=== PATIENT | female | born 1980 | race Caucasian/White ===

== ENCOUNTER 2020-01-17 07:48 | Outpatient (CLI) | payer OTHER, SELFPAY ==
--- NOTE | ~2020-01-17 | DEXA_ITS ---
Bone Density Report Name: Lisa Mcgraw Age: 39 Sex: Female Ethnicity: White Date of : 1980 Indication: height loss; Referring Provider: Hong Connelly Study: Bone densitometry was performed. Exam Date: January 17, 2020 Accession number: [id number] Bone Density: Region BMD T-score Z-score Classification AP Spine (L1-L4) 1.120 0.7 0.8 Normal Femoral Neck (Left) 0.965 1.0 1.3 Normal Total Hip (Left) 1.201 2.1 2.3 Normal Total Hip Bilateral Avg 1.191 2.0 2.2 Normal Femoral Neck (Right) 1.005 1.4 1.7 Normal Total Hip (Right) 1.180 1.9 2.1 Normal World Health Organization criteria for BMD impression classify patients as: Normal (T-score at or above -1.0), Osteopenia (T-score between -1.0 and -2.5), or Osteoporosis (T-score at or below -2.5). 10-year Fracture Risk: FRAX not reported because: Premenopausal woman All T-scores for Spine Total, Hip Total, Femoral Neck at or above -1.0 Previous Exams: Region Exam Age BMD T-score BMD Change BMD Change Date g/cm2 vs Baseline vs Previous AP Spine(L1-L4) 01/17/2020 39 1.120 0.7 -0.057(-4.8%)* -0.057(-4.8%)* 09/17/2017 37 1.177 1.2 Total Hip(Left) 01/17/2020 39 1.201 2.1 -0.045(-3.6%)* -0.045(-3.6%)* 09/17/2017 37 1.247 2.5 Total Hip(Right) 01/17/2020 39 1.180 1.9 -0.029(-2.4%)* -0.029(-2.4%)* 09/17/2017 37 1.209 2.2 *Denotes significance at 95% confidence level, LSC for AP Spine = 0.022 g/cm2, LSC for Total Hip = 0.027 g/cm2 Clinical Information Provided by Patient: Patient maximum height was 67 No regular weight bearing exercise Drinks caffeinated beverages Onset of menses at age 13 Premenopausal Number of children 3 Missed period for more than 6 months in a row Impression: The patient's bone mass is within expected range for age, gender and ethnicity. The BMD for the AP Spine(L1-L4) decreased, changing by -4.8% since the last DXA exam. The BMD for the Total Hip(Left) decreased, changing by -3.6% since the last DXA exam. The BMD for the Total Hip(Right) decreased, changing by -2.4% since the last DXA exam. Discussion: BONE DENSITY IS WITHIN EXPECTED LIMITS FOR AGE, SEX AND RACE. Bone density is within expected limits for age, sex and race at all sites measured. The patient should follow a healthful lifestyle (good nutrition with adequate calcium and vitamin D, and appropriate weight-bearing exercise). Follow-Up: Consider repeating this study in 3 to 4 years to reassess
== END 2020-01-17 07:49 | disposition home or self-care (01) ==
PROVIDERS: PCP Internal Medicine; Visit Provider Obstetrics & Gynecology
DX: Z30.42 Encounter for surveillance of injectable contraceptive (principal)
CPT/HCPCS: 77080

== ENCOUNTER 2020-12-11 08:45 | Outpatient (CLI) | payer OTHER, SELFPAY ==
--- NOTE | ~2020-12-11 | XR_ITS ---
EXAMINATION: XR chest 2V DATE: 12/11/2020 09:06 INDICATION: Cough. TECHNIQUE: Frontal and lateral views of the chest were obtained. COMPARISON: None. FINDINGS: A calcified right lung nodule is consistent with old granulomatous disease. No pleural effu glenn or pneumothorax. The heart size is normal. Surgical clips in the right upper quadrant are likely from cholecystectomy. IMPRESSION: 1. No acute cardiopulmonary disease. Reviewed, dictated and finalized at location A. 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
[2020-12-11 09:21] LABS: Basophils Absolute Auto 0.1 K/mm3 (0.0-0.1); Basophils Percent Auto 0.8 % (0.2-1.2); Eosinophils Absolute Auto 0.1 K/mm3 (0-0.3); Hematocrit 40.5 % (37.0-47.0); Hemoglobin 12.9 g/dL (12.0-15.0); Immature Granulocyte Absolute 0.07 K/mm3 (0.00-0.031); Immature Granulocyte Percent A 0.7 % (0-0.5); Lymphocytes Absolute Auto 2.74 K/mm3 (0.9-3.2); Lymphocytes Percent Auto 28.6 % (18.3-44.2); Mean Corpuscular HGB Conc 31.9 g/dl (32-36); Mean Corpuscular Hemoglobin 29.4 pg (26-34); Mean Corpuscular Volume 92.3 fl (80-100); Mean Platelet Volume 9.6 fl (7.4-10.4); Monocytes Absolute Auto 0.6 K/mm3 (0.1-0.6); Monocytes Percent Auto 5.7 % (2.6-8.5); Neutrophils Absolute Auto 6.1 K/mm3 (1.3-6.7); Neutrophils Percent Auto 63.2 % (45.5-73.1); Platelet Count Result 354 k/mm3 (150-375); Red Blood Count 4.39 M/mm3 (4.2-5.4); Red Cell Distribution Width 13.8 % (11.5-14.5); White Blood Count 9.6 K/mm3 (4.5-10.0)
[2020-12-11 09:35] LABS: Anion Gap 7 mmol/L (8-16); Blood Urea Nitrogen 13 mg/dL (7-17); Carbon Dioxide 27 mmol/L (22-30); Chloride 106 mmol/L (98-107); Cholesterol 123 mg/dL (0-200); Estimated Glomerular Filt Rate > 60; Glucose 99 mg/dL (65-105); HDL Direct 40 mg/dL; Potassium 3.8 mmol/L (3.4-5.0); Sodium 140 mmol/L (137-145); Triglycerides 114 mg/dL (<150)
[2020-12-11 09:46] LABS: LDL Cholesterol Direct 61 mg/dL
== END 2020-12-11 08:46 | disposition home or self-care (01) ==
PROVIDERS: PCP Family Medicine; Visit Provider Physician Assistant Medical
DX: Z13.220 Encounter for screening for lipoid disorders (principal); R63.5 Abnormal weight gain; Z13.1 Encounter for screening for diabetes mellitus; R05 Cough
CPT/HCPCS: 36415; 71046; 80048; 80061; 84443; 85025

== ENCOUNTER 2021-03-07 09:40 | Outpatient (CLI) | payer OTHER, SELFPAY ==
--- NOTE | ~2021-03-07 | XR_ITS ---
EXAMINATION: XR foot LT min 3V DATE: 03/07/2021 10:02 INDICATION: Lateral left foot pain TECHNIQUE: Dorsoplantar, two oblique and lateral views of the left foot were obtained. COMPARISON: None. FINDINGS: Alignment is normal. No fracture. Minimal to mild osteoarthritis characterized by mild nonuniform lester nt space narrowing and/or small marginal osteophytes at the first metatarsophalangeal and a few tarso metatarsal and interphalangeal joints. No erosions to suggest inflammatory arthritis. No periosteal r eaction. Small enthesopathic ossicle at the distal Achilles tendon. Soft tissues are unremarkable. IMPRESSION: 1. Minimal to mild polyarticular osteoarthritis in the left mid and forefoot. No acute osseous abnorm ality. Reviewed, dictated and finalized at location A. IMPRESSION: 1. Minimal to mild polyarticular osteoarthritis in the left mid and forefoot. N o acute osseous abnormality.
== END 2021-03-07 09:41 | disposition home or self-care (01) ==
LOC: ANHIMG 09:47
PROVIDERS: PCP Family Medicine; Visit Provider Nurse Practitioner Family
DX: M79.672 Pain in left foot (principal); M19.072 Primary osteoarthritis, left ankle and foot
CPT/HCPCS: 73630

== ENCOUNTER 2021-03-29 18:18 | Outpatient (CLI) | payer OTHER, SELFPAY ==
--- NOTE | ~2021-03-29 | XR_ITS ---
EXAMINATION: XR knee LT 3V DATE: 03/29/2021 18:31 INDICATION: Left knee injury and pain. TECHNIQUE: 3 views of left knee were obtained. COMPARISON: None. FINDINGS: Bone alignment is normal. No fracture. There is mild osteoarthritis of lateral and patellof emoral compartments characterized by tiny marginal osteophytes. There is a small knee joint effusion. IMPRESSION: 1. Mild left knee osteoarthritis. 2. Small left knee joint effusion. Reviewed, dictated and finalized at location A.
== END 2021-03-29 18:19 | disposition home or self-care (01) ==
PROVIDERS: PCP Family Medicine; Visit Provider Nurse Practitioner Family
DX: M17.12 Unilateral primary osteoarthritis, left knee (principal); M25.462 Effusion, left knee
CPT/HCPCS: 73562

== ENCOUNTER 2021-05-01 00:45 | Day surgery (SDC) | payer OTHER, SELFPAY ==
[2021-04-25 10:16] VITALS: BMI 39.2
[2021-05-01] VITALS (12 sets, daily range): BP systolic 87–116; BP diastolic 48–78; PULSE 59–90; RESP 10–16; TEMP 36–36.1; O2SAT 94–100
[2021-05-01] MEDS: ACETAMINOPHEN 500 MG TABLET 1000 MG PO (07:08)
[2021-05-01] MEDS: LACTATED RINGERS 1,000 ML 30 ML IV CONT ×2 (07:15→09:48)
[2021-05-01] MEDS: KETOROLAC 15 MG/ML VIAL (*BKC) IV PUSH (07:18)
--- NOTE | 2021-05-01 07:18 | WPDANESEPPF ---
Anes - Initial Pre Proc Eval Procedure: Operation Date: 05/01/21 08:30 Proposed Procedures p Hysteroscopy, Endometrial Ablation with Mary Anne, Bilateral Laparoscopic Salpingectomy - Hong Connelly MD Date/Time: 05/01/21 07:18 Surgeon: Hong Connelly MD Pre Op Diagnosis: menorrhagia, sterilization Patient Data Age: 40 Gender: F Height: 1.78 m Weight: 123.83 kg Allergies Allergy/AdvReac Type Severity Reaction Status Date / Time No Known Allergies Allergy Unknown Verified 05/01/21 07:04 Home Medications Medication Instructions Recorded Confirmed Type albuterol sulfate 90 mcg/actuation 1 inh INHALATION Q4H PRN #6.7 g 12/06/20 05/01/21 Rx aerosol inhaler bupropion HCl 150 mg 24 hr tablet, 150 mg PO QAM #30 tablet 03/29/21 05/01/21 Rx extended release meloxicam 15 mg PO DAILY 04/25/21 05/01/21 History progesterone micronized 200 mg PO DAILY 04/25/21 05/01/21 History Patient hx anesthesia problems: none Family hx anesthesia problems: none PMFSH Past Medical History Medical History BMI 40.0-44.9, adult Cough COVID-19 History of hemorrhoids Morbid (severe) obesity due to excess calories Well adult exam Surgical History Surgical History History of appendectomy History of cholecystectomy History of right oophorectomy Family History Family History Father Family history of lung cancer Mother COPD (chronic obstructive pulmonary disease) Diabetes mellitus Sibling No problems noted. Other Cerebrovascular accident Family history of alcoholism Family history of anemia Family history of arthritis Family history of atrial fibrillation Family history of cardiovascular disease Family history of congestive heart failure Family history of dementia Family history of glaucoma Family history of hearing loss Family history of hepatitis Family history of kidney disease Family history of liver disease Family history of mental disorder Family history of migraine headaches Family history of obesity Family history of osteoporosis Family history of pancreatic cancer Family history of seizure disorder Social History Social History Social History: no Smoking packs per day: 1 Smoking cigarettes per day: 20.0 Years smoked: 10 Smoking pack-years: 10.00 Tobacco type: cigarettes Second hand tobacco smoke exposure: Yes Alcohol intake: current Substance use: never Substance use type: does not use Last use: 2005 Living arrangements: with family 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 Questions were solicited and answers provided to the satisfaction of the patient/family/POA.
--- NOTE | 2021-05-01 08:39 | WPDHPUPDATE1 ---
History and Physical Update Update Date/Time: 05/01/21 08:39 History and Physical has been reviewed, including an updated exam of the patient. There are NO changes in the patient's condition. Risks, benefits, and alternatives have been discussed and questions answered. Patient agrees to proceed with procedure.
--- NOTE | 2021-05-01 10:05 | W.PM.PROC2 ---
Procedure Note - Detailed Date of Procedure 05/01/21 Pre-op Diagnosis menorrhagia, sterilization Post-op Diagnosis same ( Adhesions) Procedure Performed Laparoscopic bilateral salpingectomy, endometrial ablation with hysteroscopy, adhesiolysis Surgeon Hong Connelly MD Anesthesia general Indications Unwanted fertility, severe menorrhagia Findings Normal appearing ovaries, fallopian tubes, uterus. Normal vulva vagina and cervix. Normal endometrium. adhesions between the omentum and the anterior abdominal wall below the uterus. Description of Procedure The patient dissect the operating room. She has prepped draped in the dorsal lithotomy position after induction of general anesthesia. The 5 mm left upper quadrant incision was made with a scalpel. A 5 mm trocar was inserted into the intra-abdominal cavity under direct visualization the scope. Pneumoperitoneum was achieved. A 5 mm left lower quadrant incision was made in the skin with a scalpel. A 5 mm trocar was inserted the intra-abdominal cavity under direct visualization the scope. A 5 mm infraumbilical incision was made with scalp on a 5 mm trocar was inserted intra-abdominal cavity under direct visualization of the scope. Fifteen minutes of adhesiolysis was performed. This was done using sharp and blunt dissection along with cautery. The omentum was transected and cauterized in freed from the anterior abdominal wall. No bowel was found within the tissue. The bilateral fallopian tubes were removed. The mesosalpinx of the fallopian tube was cauterized from the ovary in a stepwise fashion using LigaSure cautery. It was cut and cauterized in stepwise fashion around to the corneal part of the uterus and fallopian tube. The tube was transected there in amputated. This was done with LigaSure cautery. The tube was taken at the left lower quadrant trocar site. The contralateral side was done in identical fashion. The patient tolerated this portion of the procedure well. The incisions were closed subcuticular for Monocryl and with Dermabond. A speculum was placed in the vagina. Cervix grasped with a tenaculum. The cervix was dilated to about 1 cm. The hysteroscope was inserted. The above findings were noted. Measurements were taken of the uterus and cervix. The uterine length was then entered into the hand piece of the Mary Anne device. The device was inserted into the intrauterine cavity. The array of the device was expanded. The balloon cuff was inflated. A good seal was achieved. The energy and safety cycles were initiated and completed. The array was collapsed and the instrument was withdrawn after deflating the balloon cuff. Hysteroscope was reinserted. Above findings were noted. The hysteroscope was removed. The patient tolerated the procedure well. The speculum and tenaculum were removed. She was taken to recovery in stable condition. Sponge lap and needle counts were correct x2. Estimated Blood Loss 15 Drains No Packing No Pathology none sent Complications No immediate complications Condition stable Disposition PACU
--- NOTE | 2021-05-01 10:07 | SUR.PHASEI ---
PT AWAKE, STATES PAIN MODERATE AT 5/10. DENIES NEED FOR PAIN MEDICINE AT THIS TIME. ENCOURAGED PT NOT TO LET PAIN BECOME SEVERE WITHOUT TAKING PAIN MEDICINE. PT VERBALIZED UNDERSTANDING.
[2021-05-01] MEDS: ONDANSETRON INJ 4 MG/2 ML VIAL IV PUSH (10:19)
[2021-05-01] MEDS: fentaNYL CITRATE INJ (*CRX) 100 MCG/2 ML VIAL 25 MCG IV PUSH ×2 (10:40→10:54)
--- NOTE | 2021-05-01 10:42 | SUR.PHASEI ---
1035; CALLED DR VENTURA. NOTIFIED HIM OF C/O NAUSEA, PT SLIGHTLY PALE IN COLOR, BP 90'S SYSTOLIC. BENADRYL AND HALDOL ORDERED PRN. IVF INFUSING.
[2021-05-01] MEDS: diphenhydrAMINE HCl INJ 50 MG/ML VIAL 6.25 MG IV PUSH ×2 (10:46→10:54)
== END 2021-05-01 12:28 | disposition home or self-care (01) ==
PROVIDERS: PCP Family Medicine; Visit Provider Obstetrics & Gynecology
PROC: 0UDB8ZZ Extraction of Endometrium, Via Natural or Artificial Opening Endoscopic (ICD-10-PCS; CPT 58558; principal; 2021-05-01 08:30)
DX: Z30.2 Encounter for sterilization (principal); N92.0 Excessive and frequent menstruation with regular cycle; N73.6 Female pelvic peritoneal adhesions (postinfective); Z86.16 Personal history of COVID-19; Z79.51 Long term (current) use of inhaled steroids; F17.210 Nicotine dependence, cigarettes, uncomplicated; E66.01 Morbid (severe) obesity due to excess calories; Z68.38 Body mass index [BMI] 38.0-38.9, adult
CPT/HCPCS: 58661; 58563; 88302; A9270; J0330; J1100; J1200; J1885; J2250; J2405; J2704; J3010; J7030; J7120

== ENCOUNTER 2022-01-01 10:07 | Emergency (ER) | payer OTHER, SELFPAY ==
--- NOTE | 2022-01-01 10:12 | ED.URI ---
HPI - URI/Sore Throat General Chief Complaint: Upper Respiratory Infection Stated Complaint: Sore Throat Time Seen by Provider: 01/01/22 10:14 Source: patient, family, RN notes reviewed and old records reviewed Mode of arrival: ambulatory Limitations: no limitations History of Present Illness HPI Narrative: 41-year-old female presents to the [facility] with complaints of a sore throat since Friday, 4 days. 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 Patient states she has had leg pain, feels like her throat is swelling, difficulty swallowing. Patient is maintaining own secretions. Nontoxic in appearance. Denies fevers, chest pain, abdominal pain. MD elicited complaint: sore throat Related Data Allergies Allergy/AdvReac Type Severity Reaction Status Date / Time No Known Allergies Allergy Unknown Verified 01/01/22 10:08 Review of Systems Review of Systems: All systems reviewed & are unremarkable except as noted in HPI and below Constitutional: Constitutional: Reports no additional constitutional complaints, Denies chills, Denies fever(s) and Denies headache(s) Eyes: Eyes: Reports no additional eye complaints ENT: Reports as per HPI, Denies vertigo, Denies dizziness, Denies headache(s), Denies nasal congestion and Reports sore throat Cardiovascular: Cardiovascular: Reports no additional cardiovascular complaints, Denies chest pain, Denies syncope, Denies rapid heart rate and Denies dyspnea Respiratory: Respiratory: Reports no additional respiratory complaints, Denies cough, Denies dyspnea and Denies wheezing Gastrointestinal: Gastrointestinal: Reports no additional gastrointestinal complaints, Denies abdominal pain, Denies diarrhea, Denies nausea and Denies vomiting Musculoskeletal: Musculoskeletal: Reports as per HPI, Reports myalgias and Denies numbness Integumentary/Breasts: Skin/Breast: Reports system reviewed and no additional complaints, except as docu Neurologic: Reports system reviewed and no additional complaints, except as documented, Denies vertigo, Denies dizziness, Denies syncope, Denies headache(s), Denies focal weakness and Denies numbness Psychiatric: Psychiatric: Reports no additional psychiatric complaints Allergic/Immunologic: Allergic/Immunologic: Reports no additional allergic/immunologic complaints and Denies wheezing PMFSH Past Medical History Medical History BMI 39.0-39.9,adult BMI 40.0-44.9, adult Cough COVID-19 History of hemorrhoids Morbid (severe) obesity due to excess calories Well adult exam Surgical History Surgical History H/O bilateral salpingectomy History of appendectomy History of cholecystectomy History of right oophorectomy Hx of prior ablation treatment Family History Family History Father Family history of lung cancer Mother COPD (chronic obstructive pulmonary disease) Diabetes mellitus Sibling No problems noted. Other Cerebrovascular accident Family history of alcoholism Family history of anemia Family history of arthritis Family history of atrial fibrillation Family history of cardiovascular disease Family history of congestive heart failure Family history of dementia Family history of glaucoma Family history of hearing loss Family history of hepatitis Family history of kidney disease Family history of liver disease Family history of mental disorder Family history of migraine headaches Family history of obesity Family history of osteoporosis Family history of pancreatic cancer Family history of seizure disorder Social History Social History Social History: no Smoking packs per day: 1 Smoking cigarettes per day: 20.0 Years smoked: 10 Smoking pack-years: 10.00
[2022-01-01 10:15] VITALS: BP 138/79; PULSE 99; RESP 16; TEMP 36.6; O2SAT 98
== END 2022-01-01 10:41 | disposition home or self-care (01) ==
PROVIDERS: Emergency Provider Nurse Practitioner; PCP Family Medicine
DX: J02.0 Streptococcal pharyngitis (principal); Z87.891 Personal history of nicotine dependence; E66.9 Obesity, unspecified; Z68.41 Body mass index [BMI] 40.0-44.9, adult; Z86.16 Personal history of COVID-19
CPT/HCPCS: 87804; 87880; 99213; G0463

== ENCOUNTER 2022-01-17 07:17 | Outpatient (CLI) | payer OTHER, SELFPAY ==
[2022-01-17 07:35] LABS: Basophils Absolute Auto 0.1 K/mm3 (0.0-0.1); Basophils Percent Auto 1.4 % (0.2-1.2); Eosinophils Absolute Auto 0.1 K/mm3 (0-0.3); Eosinophils Percent Auto 1.2 % (0-4.4); Hematocrit 37.4 % (37.0-47.0); Hemoglobin 12.4 g/dL (12.0-15.0); Immature Granulocyte Absolute 0.04 K/mm3 (0.00-0.031); Immature Granulocyte Percent A 0.5 % (0-0.5); Lymphocytes Absolute Auto 4.38 K/mm3 (0.9-3.2); Lymphocytes Percent Auto 59.5 % (18.3-44.2); Mean Corpuscular HGB Conc 33.2 g/dl (32-36); Mean Corpuscular Hemoglobin 29.2 pg (26-34); Mean Corpuscular Volume 88.2 fl (80-100); Mean Platelet Volume 9.2 fl (7.4-10.4); Monocytes Absolute Auto 0.3 K/mm3 (0.1-0.6); Monocytes Percent Auto 3.8 % (2.6-8.5); Neutrophils Absolute Auto 2.5 K/mm3 (1.3-6.7); Neutrophils Percent Auto 33.6 % (45.5-73.1); Platelet Count Result 225 k/mm3 (150-375); Red Blood Count 4.24 M/mm3 (4.2-5.4); Red Cell Distribution Width 16.2 % (11.5-14.5); White Blood Count 7.4 K/mm3 (4.5-10.0)
[2022-01-17 07:47] LABS: Alanine Aminotransferase 28 U/L (4-35); Albumin Level 3.9 g/dL (3.5-5.1); Alkaline Phosphatase 100 U/L (38-126); Anion Gap 8 mmol/L (8-16); Aspartate Amino Transferase 47 U/L (14-36); Bilirubin,Total 1.2 mg/dL (0.2-1.3); Blood Urea Nitrogen 9 mg/dL (7-17); Calcium 8.2 mg/dL (8.4-10.2); Carbon Dioxide 27 mmol/L (22-30); Chloride 102 mmol/L (98-107); Cholesterol 152 mg/dL (0-200); Estimated Glomerular Filt Rate > 60; Glucose 114 mg/dL (65-110); HDL Direct 19 mg/dL; Potassium 3.4 mmol/L (3.4-5.0); Sodium 137 mmol/L (137-145); Triglycerides 272 mg/dL (<150)
[2022-01-17 07:58] LABS: LDL Cholesterol Direct 79 mg/dL
[2022-01-17 08:15] LABS: Anisocytosis 1+ (NORMAL); Atypical Lymphocytes Present; Platelet Estimate Adequate (Adequate)
[2022-01-17 10:17] LABS: Vitamin D 25 Hydroxy 14.4 ng/mL
[2022-01-22 07:28] LABS: FSH 4.2 mIU/mL (***); LH 3.8 mIU/mL (***)
[2022-01-23 16:07] LABS: Estrogen 863.9 pg/mL
== END 2022-01-17 07:18 | disposition home or self-care (01) ==
LOC: ANHLAB 07:19
PROVIDERS: PCP Family Medicine; Visit Provider Nurse Practitioner Family
DX: R11.0 Nausea (principal); R53.83 Other fatigue; R23.2 Flushing; R73.09 Other abnormal glucose; Z13.220 Encounter for screening for lipoid disorders; E55.9 Vitamin D deficiency, unspecified
CPT/HCPCS: 36415; 80053; 80061; 82306; 82672; 83001; 83002; 84443; 85025

== ENCOUNTER 2022-03-14 13:50 | Emergency (ER) | payer OTHER, SELFPAY ==
[2022-03-14] VITALS (29 sets, daily range): BP systolic 96–130; BP diastolic 54–96; PULSE 90–106; RESP 18; TEMP 36.7; O2SAT 96–100
--- NOTE | ~2022-03-14 | CT_ITS ---
EXAMINATION: CT brain wo con DATE: 03/14/2022 15:53 INDICATION: Headache. TECHNIQUE: Computed tomography (CT) of the head was performed without intravenous contrast. The mA wa s adjusted according to patient size. Iterative reconstruction technique was employed. The dose-lengt h product was 529.67 mGy-cm. COMPARISON: None FINDINGS: There is no intracranial hemorrhage, acute infarction, or abnormal intracranial mass lesion . The ventricles are normal in size. There is mild mucosal thickening in the ethmoid sinuses. The mas toid air cells are normal. IMPRESSION: 1. Normal brain. Reviewed, dictated and finalized at location A. IMPRESSION: 1. Normal brain.
[2022-03-14] MEDS: METOCLOPRAMIDE HCL INJ 10 MG/2 ML VIAL IV PUSH (16:33)
[2022-03-14] MEDS: LACTATED RINGERS 1,000 ML 999 ML IV CONT ×2 (16:33→16:35)
[2022-03-14] MEDS: diphenhydrAMINE HCl INJ 50 MG/ML VIAL 25 MG IV PUSH (16:34)
[2022-03-14] MEDS: KETOROLAC 30 MG/ML VIAL (*BKC) IV PUSH (16:34)
[2022-03-14 16:37] LABS: Basophils Absolute Auto 0.1 K/mm3 (0.0-0.1); Basophils Percent Auto 0.6 % (0.2-1.2); Eosinophils Percent Auto 0.2 % (0-4.4); Hematocrit 33.9 % (37.0-47.0); Hemoglobin 10.8 g/dL (12.0-15.0); Immature Granulocyte Absolute 0.08 K/mm3 (0.00-0.031); Immature Granulocyte Percent A 0.9 % (0-0.5); Lymphocytes Percent Auto 19.5 % (18.3-44.2); Mean Corpuscular HGB Conc 31.9 g/dl (32-36); Mean Corpuscular Hemoglobin 28.6 pg (26-34); Mean Corpuscular Volume 89.7 fl (80-100); Mean Platelet Volume 9.4 fl (7.4-10.4); Monocytes Absolute Auto 0.6 K/mm3 (0.1-0.6); Monocytes Percent Auto 7.1 % (2.6-8.5); Neutrophils Absolute Auto 6.3 K/mm3 (1.3-6.7); Neutrophils Percent Auto 71.7 % (45.5-73.1); Platelet Count Result 321 k/mm3 (150-375); Red Blood Count 3.78 M/mm3 (4.2-5.4); Red Cell Distribution Width 14.4 % (11.5-14.5); White Blood Count 8.7 K/mm3 (4.5-10.0)
[2022-03-14 16:51] LABS: Alanine Aminotransferase 31 U/L (6-35); Albumin Level 3.6 g/dL (3.5-5.1); Alkaline Phosphatase 201 U/L (38-126); Anion Gap 7 mmol/L (8-16); Aspartate Amino Transferase 42 U/L (14-36); Bilirubin,Total 1.5 mg/dL (0.2-1.3); Blood Urea Nitrogen 14 mg/dL (7-17); Calcium 8.1 mg/dL (8.4-10.2); Carbon Dioxide 28 mmol/L (22-30); Chloride 97 mmol/L (98-107); Estimated CRCL calculation 72 ml/min; Estimated Glomerular Filt Rate 50; Glucose 107 mg/dL (65-110); Potassium 3.4 mmol/L (3.4-5.0); Sodium 132 mmol/L (137-145)
[2022-03-14 17:01] LABS: Add Urine Microscopic? YES; Appearance Urine Cloudy (Clear); Bilirubin Urine 2+ (Negative); Blood Urine 1+ (Negative); Color Urine Orange (Yellow); Glucose Urine UA Negative (Negative); Ketones Urine Trace mg/dL (Negative); Leukocyte Esterase Ur 1+ LEU/UL (Negative); Nitrate Urine Positive (Negative); Protein Urine 3+ mg/dL (Negative); Urobilinogen Urine >=8.0 mg/dL (<2.0)
[2022-03-14 17:07] LABS: Amorphous Sediment Urine Few; Bacteria Urine 4+ /hpf; Mucus Urine Heavy /lpf; RBC Urine 21-50 /hpf (0-2); Squamous Epithelial Cell Urine Rare /hpf (Few); WBC Clumps Urine Present /HPF; WBC Urine >75 /hpf
--- NOTE | 2022-03-14 17:18 | ED.HA ---
HPI - Headache General Chief Complaint: Nausea/Vomiting/Diarrhea Stated Complaint: headache/insomnia x 5 days Time Seen by Provider: 03/14/22 15:30 Source: patient Mode of arrival: ambulatory Limitations: no limitations History of Present Illness HPI Narrative: 41-year-old female presents today with complaints of a migraine for the past week. Patient states is the worst migraine that she is ever had. Patient has a history of migraines normally are treated with [id number] Excedrin without issue. Patient is seen her provider in the last week Toradol p.o. given without relief. Patient presents today with complaints of pain 8-10 out of 10. Patient was sensitivity to light, and nausea. Patient denies any vision changes, extremity weakness, dizziness. Related Data Allergies Allergy/AdvReac Type Severity Reaction Status Date / Time No Known Allergies Allergy Unknown Verified 03/12/22 11:11 Review of Systems Review of Systems: CONSTITUTIONAL: Denies fever, chills, or sweats. EYES: Denies visual changes, redness, or discharge. ENT: Denies rhinorrhea, congestion, sore throat, or otalgia. CARDIOVASCULAR: Denies chest pain, palpitations, or edema. RESPIRATORY: Denies cough or dyspnea. GASTROINTESTINAL: Intermittent nausea. Denies abdominal pain, vomiting, or diarrhea. GENITOURINARY: Denies dysuria or hematuria. SKIN: Denies rash or itching. MUSCULOSKELETAL: Denies back pain, joint pain, or myalgia. NEUROLOGIC: Migraine with nausea. Denies numbness, dizziness, or weakness. PSYCHIATRIC: Denies anxiety or depression. [facility] Past Medical History Medical History BMI 38.0-38.9,adult BMI 39.0-39.9,adult BMI 40.0-44.9, adult Cough COVID-19 History of hemorrhoids Morbid (severe) obesity due to excess calories Well adult exam Surgical History Surgical History H/O bilateral salpingectomy History of appendectomy History of cholecystectomy History of right oophorectomy Hx of prior ablation treatment Family History Family History Father Family history of lung cancer Mother COPD (chronic obstructive pulmonary disease) Diabetes mellitus Sibling No problems noted. Other Cerebrovascular accident Family history of alcoholism Family history of anemia Family history of arthritis Family history of atrial fibrillation Family history of cardiovascular disease Family history of congestive heart failure Family history of dementia Family history of glaucoma Family history of hearing loss Family history of hepatitis Family history of kidney disease Family history of liver disease Family history of mental disorder Family history of migraine headaches Family history of obesity Family history of osteoporosis Family history of pancreatic cancer Family history of seizure disorder Social History Social History Social History: no Smoking packs per day: 1 Smoking cigarettes per day: 20.0 Years smoked: 10 Smoking pack-years: 10.00 Smoking status: Former smoker Tobacco type: cigarettes Second hand tobacco smoke exposure: Yes Smoking end date: 10/06/05 Alcohol intake: never Substance use: former Substance use type: marijuana Other substance usage details: vape Last use: 3 months Additional living arrangements comments: and kids 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 Patient ready to go home. Patient instructed needs to follow-up with primary for f
[2022-03-14] MEDS: DIHYDROERGOTAMINE MESYLATE 1 MG/ML AMP IV PUSH (18:21)
--- NOTE | 2022-03-14 19:28 | PC.NURSE ---
Patient report given to CAMMIE Mason. All questions answered and care of patient transferred.
== END 2022-03-14 19:50 | disposition home or self-care (01) ==
PROVIDERS: Emergency Provider Nurse Practitioner Family; PCP Family Medicine
DX: N39.0 Urinary tract infection, site not specified (principal); G43.919 Migraine, unspecified, intractable, without status migrainosus; Z87.891 Personal history of nicotine dependence
CPT/HCPCS: 36415; 70450; 80053; 81001; 81025; 85025; 87077; 87086; 87181; 87186; 96361; 96374; 96375; 99284; J1100; J1110; J1200; J1885; J2765; J7120

== ENCOUNTER 2022-10-04 09:17 | Outpatient (CLI) | payer OTHER, SELFPAY | END 2022-10-04 09:18 | disposition home or self-care (01) | PROVIDERS: PCP Family Medicine; Visit Provider Obstetrics & Gynecology | DX: N92.0 Excessive and frequent menstruation with regular cycle (principal); Z01.818 Encounter for other preprocedural examination | CPT/HCPCS: 36415; 86850; 86900; 86901 ==

== ENCOUNTER 2022-10-09 01:01 | Day surgery (SDC) | payer OTHER, SELFPAY ==
[2022-09-23 17:07] VITALS: BMI 38.0
--- NOTE | 2022-09-23 17:18 | PC.NURSE ---
Report to the Outpatient Waiting Room, entrance under the green pavilion located off [facility], at time 1130 on date 10/09/2022. Planned Procedure Time:1330. Time changes happen often and if your time is changed the preop area will call you the afternoon before. - You and your visitor will be asked to self-screen and do not enter if you have any COVID symptoms. - Only one visitor is requested with a max of two and NO children visitors are allowed at this time. - The patient visitor may be requested to leave or wait in car when not with patient due to distancing restrictions. - A mask is optional within the hospital. Patients may have clear liquids (water, carbonated beverages, clear teas, apple juice) until 3 hours prior to surgery with a maximum of 20 ounces. 1030 - No food from midnight until time of surgery - Infants may have breast milk until 4 hours before surgery, formula 6 hours prior to surgery. - Children will be allowed to drink immediately following surgery. If applicable, please bring a bottle or sippy cup to assist with drinking. Juice, water, soda, and popsicles are readily available. For infants on formula, please bring formula the day of surgery. Pacifiers are allowed. Take the following medications with a SIP of water the morning of surgery: N/A Medications to discontinue per physician N/A Date to take last dose N/A Please no make-up, nail turkmen, hairspray, perfume, deodorant, or body powder the day of surgery. No jewelry (including any body piercings) or valuables the day of surgery, leave them at home. Please take a shower or bath the night before, or the morning of, surgery with an antibacterial soap. Wear comfortable, loose fitting clothing. Children are encouraged to wear pajamas. - Jewelry must be removed prior to entering the operating room. Rings and piercings that are not removed may be cut off. - The hospital will not accept responsibility for valuables. - Please leave all valuables, including medications, at home the day of surgery. If you are going home after surgery, a licensed star route mail driver must drive you home. - NO public transportation without another adult if you receive anesthesia. - We recommend that an adult stay with you for 24 hours following discharge. - We also recommend that you do not drive, make important decision, drink alcoholic beverages, or take any drugs that were not prescribed by your health care provider for at least 24 hours after your discharge time. For Pediatric surgeries, we recommend two adults accompany the child home. Follow any additional instructions given to you from your surgeon. If you or anyone in your household have experienced Covid symptoms in the past week, please notify your surgeon or the nurse liaison at the phone number below for possible testing. Telephone instructions given to Lisa Mcgraw and asked if any additional questions and then verbalized understanding. Patient advised to call surgeon office or pre surgery nurse liaison [phone] if any additional questions.
[2022-10-09] VITALS (7 sets, daily range): BP systolic 122–136; BP diastolic 70–90; PULSE 77–94; RESP 12–16; TEMP 36–37.1; O2SAT 93–100
--- NOTE | 2022-10-09 07:46 | WPDANESEPPF ---
Anes - Initial Pre Proc Eval Procedure: Operation Date: 10/09/22 13:30 Proposed Procedures p Robotic Assisted Hysterectomy, Bilateral Salpingectomy - Hong Connelly MD Date/Time: 10/09/22 07:46 Surgeon: Hong Connelly MD Pre Op Diagnosis: menorrhaghia Patient Data Age: 42 Gender: F Height: 1.78 m Weight: 120.4 kg Allergies Allergy/AdvReac Type Severity Reaction Status Date / Time No Known Allergies Allergy Unknown Verified 10/09/22 11:34 Home Medications Medication Instructions Recorded Confirmed Type hydrocodone 5 mg-acetaminophen 325 1 tablet PO Q4H PRN pain #25 tabs 10/10/22 Rx mg tablet Patient hx anesthesia problems: none Family hx anesthesia problems: none Results Review: All pre-operative results and documents have been reviewed as part of the pre-operative evaluation. [facility] Past Medical History Medical History (Updated 10/10/22 @ 08:13 by Hong Connelly MD) BMI 38.0-38.9,adult BMI 39.0-39.9,adult BMI 40.0-44.9, adult Cough COVID-19 Depression History of hemorrhoids Morbid (severe) obesity due to excess calories Well adult exam Surgical History Surgical History H/O bilateral salpingectomy History of appendectomy History of cholecystectomy History of right oophorectomy Hx of prior ablation treatment Family History Family History Father Family history of lung cancer Mother COPD (chronic obstructive pulmonary disease) Diabetes mellitus Sibling No problems noted. Other Cerebrovascular accident Family history of alcoholism Family history of anemia Family history of arthritis Family history of atrial fibrillation Family history of cardiovascular disease Family history of congestive heart failure Family history of dementia Family history of glaucoma Family history of hearing loss Family history of hepatitis Family history of kidney disease Family history of liver disease Family history of mental disorder Family history of migraine headaches Family history of obesity Family history of osteoporosis Family history of pancreatic cancer Family history of seizure disorder Social History Social History Social History: no Smoking packs per day: 1 Smoking cigarettes per day: 20.0 Years smoked: 12 Smoking pack-years: 12.00 Smoking status: Former smoker Tobacco type: cigarettes Second hand tobacco smoke exposure: Yes Smoking end date: 10/06/05 Alcohol intake: never Alcohol use details: 2x per year Substance use: former Substance use type: marijuana Other substance usage details: 4x per month Last use: 3 months Living arrangements: with family Additional living arrangements comments: and kids 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 Gender identity (if verbalized by the patient): Female Sexual Orientation (if Verbalized by the Patient): Straight or Heterosexual Spiritual care concerns: No Agree to blood products: Yes Anes - Eval Final PreProcedure Day of Procedure 10/09/22 07:46 Patient weight: obese Heart: regular rate and rhythm Lungs: clear to auscultation Airway: Mallampati scale class II Neurological: alert and oriented Last oral intake: >/= 8 hours ASA classification: II Emergent: no Anesthetic plan: proceed Anesthesia type and monitoring: general ETT and standard monitoring Results Review: All pre-operative results and documents have been reviewed as part of the pre-operative evaluation. Informed Consent: The patient's anesthetic plan and its attendant risks and benefits were discussed with the patient/family/POA. Questions were solicited and answers provided to the satisfaction of the patient/family/POA.
[2022-10-09] MEDS: ACETAMINOPHEN 500 MG TABLET 1000 MG PO (11:42)
[2022-10-09] MEDS: LACTATED RINGERS 1,000 ML 30 ML IV CONT ×3 (12:00→18:37)
--- NOTE | 2022-10-09 12:12 | WPDANESEPPF ---
Anes - Initial Pre Proc Eval Procedure: Operation Date: 10/09/22 13:30 Proposed Procedures p Robotic Assisted Hysterectomy, Bilateral Salpingectomy - Hong Connelly MD Date/Time: 10/09/22 12:12 Surgeon: Hong Connelly MD Pre Op Diagnosis: menorrhaghia Patient Data Age: 42 Gender: F Height: 1.78 m Weight: 116.4 kg Allergies Allergy/AdvReac Type Severity Reaction Status Date / Time No Known Allergies Allergy Unknown Verified 10/09/22 11:34 Home Medications Medication Instructions Recorded Confirmed Type No Home Medications 09/23/22 09/23/22 History Patient hx anesthesia problems: none Family hx anesthesia problems: none Results Review: All pre-operative results and documents have been reviewed as part of the pre-operative evaluation. [facility] Past Medical History Medical History (Updated 10/09/22 @ 07:46 by Endy Rizvi, ) BMI 38.0-38.9,adult BMI 39.0-39.9,adult BMI 40.0-44.9, adult Cough COVID-19 Depression History of hemorrhoids Morbid (severe) obesity due to excess calories Well adult exam Surgical History Surgical History H/O bilateral salpingectomy History of appendectomy History of cholecystectomy History of right oophorectomy Hx of prior ablation treatment Family History Family History Father Family history of lung cancer Mother COPD (chronic obstructive pulmonary disease) Diabetes mellitus Sibling No problems noted. Other Cerebrovascular accident Family history of alcoholism Family history of anemia Family history of arthritis Family history of atrial fibrillation Family history of cardiovascular disease Family history of congestive heart failure Family history of dementia Family history of glaucoma Family history of hearing loss Family history of hepatitis Family history of kidney disease Family history of liver disease Family history of mental disorder Family history of migraine headaches Family history of obesity Family history of osteoporosis Family history of pancreatic cancer Family history of seizure disorder Social History Social History Social History: no Smoking packs per day: 1 Smoking cigarettes per day: 20.0 Years smoked: 12 Smoking pack-years: 12.00 Smoking status: Former smoker Tobacco type: cigarettes Second hand tobacco smoke exposure: Yes Smoking end date: 10/06/05 Alcohol intake: never Alcohol use details: 2x per year Substance use: former Substance use type: marijuana Other substance usage details: 4x per month Last use: 3 months Living arrangements: with family Additional living arrangements comments: and kids 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 Gender identity (if verbalized by the patient): Female Sexual Orientation (if Verbalized by the Patient): Straight or Heterosexual Spiritual care concerns: No Agree to blood products: Yes Anes - Eval Final PreProcedure Day of Procedure 10/09/22 12:12 Patient weight: obese Heart: regular rate and rhythm Lungs: clear to auscultation Airway: Mallampati scale class II Neurological: alert and oriented Last oral intake: >/= 8 hours ASA classification: III Emergent: no Anesthetic plan: proceed Anesthesia type and monitoring: general ETT and standard monitoring Results Review: All pre-operative results and documents have been reviewed as part of the pre-operative evaluation. Informed Consent: The patient's anesthetic plan and its attendant risks and benefits were discussed with the patient/family/POA. Questions were solicited and answers provided to the satisfaction of the patient/family/POA.
[2022-10-09] MEDS: KETOROLAC 15 MG/ML VIAL (*BKC) IV PUSH (12:32)
--- NOTE | 2022-10-09 14:17 | SUR.PREOP ---
1417- UPDATED PT ABOUT DELAY. STATED IT COULD BE AFTER [address]
--- NOTE | 2022-10-09 14:59 | WPDHPUPDATE1 ---
History and Physical Update Update Date/Time: 10/09/22 14:59 History and Physical has been reviewed, including an updated exam of the patient. There are NO changes in the patient's condition. Risks, benefits, and alternatives have been discussed and questions answered. Patient agrees to proceed with procedure.
[2022-10-09] MEDS: ceFAZolin 2 GM/D5W 50 ML 2 GM/50 ML BAG IVPB (15:41)
[2022-10-09] MEDS: ceFAZolin SODIUM 1 GM VIAL (16:58)
--- NOTE | 2022-10-09 17:49 | W.PM.PROC2 ---
Procedure Note - Detailed Date of Procedure 10/09/22 Pre-op Diagnosis menorrhaghia Post-op Diagnosis Same Procedure Performed Robot assisted Total hysterectomy with bilateral salpingectomy. Surgeon Hong Connelly MD Anesthesia General Indications heavy vaginal bleeding, pelvic pain Findings normal-appearing uterus, ovaries, and left tube, right tube was partially resected. Some scarring over the posterior cul-de-sac peritoneum. Description of Procedure This patient was taken to the operating room. She was prepped and draped in the dorsal lithotomy position after induction of general anesthesia. The uterine manipulator and Nir cup were placed. This was done with a speculum and tenaculum. The speculum was placed. The cervix was grasped with a tenaculum. The stay sutures were placed at 3 and 9:00 a.m.. The stay sutures of 0 Vicryl were tied to the appropriately Size scope after it was slipped around the cervix.. The tip of the MARGARITA manipulator was placed in the intrauterine cavity. The cup was slid into place around the cervix and into the fornices. It was locked into place. The sutures were then wrapped around the handle and tied under tension. A 8 mm skin incision was made in the left upper quadrant the abdomen. a 5 mm Visiport trocar was inserted into abdominal cavity and pneumoperitoneum was achieved. A 8 mm supraumbilical incision was made and a 8 mm trocar was inserted into the intrauterine cavity under direct visualization of the scope. an 8 mm incision was made in the right upper quadrant of the abdomen and an 8 mm robotic trocar was placed the inter uterine cavity under direct visualization the scope. An 11 mm trocar was inserted in the right upper quadrant of the abdomen rectal is a cystoscope after an incision was made there as well. The robot was docked. Electronic Orientation of the robot was performed. Bilateral ureteral lysis was performed. This was done from the pelvic brim down to the uterine artery. This was done with careful dissection using sharp and blunt dissection. The fallopian tubes were removed bilaterally. The mesosalpinx around the fallopian tubes were cauterized transected with LigaSure cautery. This was done in a bilateral fashion from the ovary to the uterine cornua. The fallopian tube was transected at the uterine cornu and amputated. The tube was taken out the left lower quadrant trocar site. In a stepwise fashion along the lateral aspects of the uterus the round ligament and broad ligaments were cauterized transected down to the level of the uterine arteries. A bladder flap was created in the bladder was moved distally to the end of the cervix and over the Nir cup. The bilateral uterine arteries were cauterized and transected. Colpotomy was then performed. In a circumferential fashion the vagina was transected using unipolar cautery. The incision was made down on the Nir cup. The uterus and cervix were taken out through the vagina. A pneumo occluder was placed in the vagina. The vaginal cuff was closed with a 0 V lock suture in a running fashion. The pelvis was irrigated with copious amounts antibiotic irrigation. The ureters were again examined and found to be intact and flowing freely under the uterine arteries into the bladder. The bladder was intact. It was examined directly. The vagina was irrigated with Betadine solution after removal of the Pneumo occluder. the trocars were removed after the robot was undocked. The skin was closed with subacute or Dermabond. The patient was taken to recovery room. She was stable condition. Sponge lap and needle counts were correct x2. Estimated Blood Loss 125 Urine Output 800 Drains Yes Packing No Pathology Yes Complications No immediate complications Condition Stable Disposition Floor
--- NOTE | 2022-10-09 19:07 | PC.NURSE ---
This patient, Lisa Mcgraw, was received from PACU per bed to room 278. Patient/family oriented to unit policies and routines
[2022-10-09] MEDS: DEXTROSE 5%/0.45% SOD CHL 1,000 ML 125 ML IV CONT (19:15)
[2022-10-10 00:25] VITALS: BP 136/62; PULSE 62; RESP 16; TEMP 36.7; O2SAT 95
[2022-10-10] MEDS: HYDROcodone/acetaminophen (*CRX) 5-325 MG TABLET 1 TAB PO ×2 (02:00→10:04)
[2022-10-10] MEDS: ONDANSETRON INJ 4 MG/2 ML VIAL IV PUSH (02:02)
[2022-10-10 07:40] VITALS: BP 99/61; PULSE 64; RESP 18; TEMP 36.8; O2SAT 96
--- NOTE | 2022-10-10 08:11 | PM.GYNPNOP ---
LANDSCAPE PHOTOGRAPHER - A/P Postoperative Procedures: Procedures Operation Date: 10/09/22 13:30 Actual Procedure Side Surgeon p Robotic Assisted Hysterectomy, Bilateral Salpingectomy Bilateral RKris Connelly MD Postoperative day: 1 Postoperative status: doing well Postoperative plan: see orders Time Spent With Patient Time: Total time spent is greater than 50% in coordination of care (as documented) at patient's floor/unit and/or counseling patient: Time with patient: less than 15 minutes LANDSCAPE PHOTOGRAPHER- PN:Subj Post-Op Subjective Date/time seen: 10/10/22 08:11 Subjective: patient reports feeling better, patient has no complaints and pain is well controlled Exam Const: General: healthy appearing, comfortable and no acute distress Resp: Auscultation: clear to auscultation bilaterally, no rales, no rhonchi and no wheezes Cardio: Rate: regular rate Heart sounds: no click, no murmurs and no rubs GI: Inspection: non-distended Auscultation: normal bowel sounds Extrem: General: normal to inspection, no pedal edema and no calf tenderness LANDSCAPE PHOTOGRAPHER - PN: Obj Data Vital Signs Vital Signs: Vital Signs - 24 hr 10/09/22 12:11 10/09/22 18:00 10/09/22 18:15 Temperature 96.8 F L 98.8 F Pulse Rate 94 90 79 Respiratory Rate 16 16 14 Blood Pressure 126/90 123/76 136/78 Pulse Oximetry 100 100 100 Oxygen Delivery Room Air Simple Face Mask Simple Face Mask Oxygen Flow Rate 6 6 10/09/22 18:30 10/09/22 18:45 10/09/22 19:00 Temperature Pulse Rate 81 77 77 Respiratory Rate 12 12 12 Blood Pressure 135/85 122/76 126/77 Pulse Oximetry 100 93 95 Oxygen Delivery Room Air Room Air Room Air Oxygen Flow Rate 10/09/22 19:15 10/10/22 00:25 Temperature 97.6 F 98.0 F Pulse Rate 78 62 Respiratory Rate 14 16 Blood Pressure 122/70 136/62 Pulse Oximetry 93 95 Oxygen Delivery Oxygen Flow Rate Intake/Output Intake/Output: Intake & Output 10/07/22 10/08/22 10/09/22 10/10/22 23:59 23:59 23:59 23:59 Intake Total 950 1300 Output Total 1045 500 Balance -95 800 Meds/Results Medications: Active Medications Generic Name Dose Route Start Last Admin Trade Name Freq PRN Reason Stop Dose Admin Hydrocodone Bitart/Acetaminophen 1 tab 10/09/22 19:01 10/10/22 02:00 Hydrocodone/Acetaminophen (*Crx) 5-325 Mg Tablet PO 1 tab Q3H PRN Administration Pain Rated 5 or Less Hydrocodone Bitart/Acetaminophen 1 tab 10/09/22 19:01 Hydrocodone/Acetaminophen (*Crx) 10-325 Mg Tablet PO Q3H PRN Pain Rated 6 or Greater Dextrose/Sodium Chloride 1,000 mls @ 125 mls/hr 10/09/22 19:01 10/10/22 03:37 Dextrose 5% Sodium Chloride 0.45% IV CONT Not Given .Q8H SUYAPA Ibuprofen 600 mg 10/09/22 19:01 Ibuprofen 600 Mg Tablet PO Q6H PRN Cramping Ketorolac Tromethamine 30 mg 10/09/22 19:01 Ketorolac 30 Mg/Ml Vial (*Bkc) IV PUSH 10/14/22 19:00 Q6H PRN Pain Rated 4-6 Naloxone HCl 0.1 mg 10/09/22 19:01 Naloxone Hcl 0.4 Mg/Ml Vial IV PUSH Q2M PRN Respiratory rate less than 10 Ondansetron HCl 4 mg 10/09/22 19:01 10/10/22 02:02 Ondansetron Inj 4 Mg/2 Ml Vial IV PUSH 4 mg Q6H PRN Administration Nausea And Vomiting
--- NOTE | 2022-10-10 09:53 | WPDANESPN ---
Anes - Prog Note Post-Op Date/Time: 10/10/22 09:53 Cardiovascular status: normal Respiratory status: normal Airway patency: baseline Mental status: baseline Post-Op hydration status: normal Vital Signs: Last Vital Signs Temp 36.8 C 10/10/22 07:40 Pulse 64 10/10/22 07:40 Resp 18 10/10/22 07:40 BP 99/61 L 10/10/22 07:40 Pulse Ox 96 10/10/22 07:40 O2 Del Method Room Air 10/09/22 19:00 O2 Flow Rate 6 10/09/22 18:15 Pain Score (VAS): 10 I/O: Intake & Output 10/09/22 10/10/22 10/10/22 23:59 07:59 15:59 Intake Total 950 1300 Output Total 1045 1900 Balance -95 -600 Post-procedural complaints: none Patient Feedback: Patient satisfied with anesthetic care.
== END 2022-10-10 10:15 | disposition home or self-care (01) ==
LOC: ANHSURGERY 11:07 → ANHOB2 19:02
PROVIDERS: PCP Family Medicine; Visit Provider Obstetrics & Gynecology
PROC: (CPT 58571; principal; 2022-10-09 13:30)
DX: N92.0 Excessive and frequent menstruation with regular cycle (principal); N80.00 Endometriosis of the uterus, unspecified; N80.30 Endometriosis of pelvic peritoneum, unspecified; Z87.891 Personal history of nicotine dependence; F12.90 Cannabis use, unspecified, uncomplicated; E66.9 Obesity, unspecified; Z68.36 Body mass index [BMI] 36.0-36.9, adult
CPT/HCPCS: 58571; S2900; 88305; 88307; 99199; A9270; J0690; J1100; J1885; J2250; J2405; J2704; J2710; J3010; J7030; J7120

== ENCOUNTER 2023-10-14 13:04 | Outpatient (CLI) | payer OTHER, SELFPAY ==
--- NOTE | ~2023-10-14 | CT_ITS ---
Non-contrast CT scan of the Abdomen and Pelvis Clinical indication: Abdominal pain Technique: 2.5 mm axial scans were obtained through the abdomen and pelvis without intravenous or or al contrast. Dose reduction technique was used on this scan by utilizing automated exposure control a nd iterative reconstruction technique. The dose-length product (DLP) was 1645.45 mGy-cm. Findings: Images through the lung bases reveal no abnormalities. The liver, spleen, pancreas, kidneys, and adrenals appear normal. Cholecystectomy clips are present. There is no aortic aneurysm. There is no evidence of bowel obstruction. Images through the pelvis were performed. There is no evidence of ascites or lymphadenopathy. Urinary bladder unremarkable. No pelvic mass seen. Impression: No significant abnormality seen. Reviewed, dictated and finalized at [facility]. 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
--- NOTE | ~2023-10-14 | XR_ITS ---
. XR abdomen/kub 1V DATE: 10/14/2023 13:27 INDICATION: Flank pain TECHNIQUE: 2 supine AP views of the abdomen COMPARISON: 10/24/2023 CT abdomen pelvis FINDINGS: No calcifications are noted at the kidneys are urinary tracts. Status post cholecystectomy. The psoas shadows are intact. No visceromegaly is detected. No evidence of bowel obstruction. Included skeletal structures are unremarkable. IMPRESSION: Status post cholecystectomy No urinary tract calcification Reviewed, dictated and finalized at [facility]. Reviewed, dictated and finalized at [facility]. HAND
== END 2023-10-14 13:05 | disposition home or self-care (01) ==
PROVIDERS: PCP Family Medicine; Visit Provider Nurse Practitioner Adult Health
DX: R10.9 Unspecified abdominal pain (principal)
CPT/HCPCS: 74018; 74176

== ENCOUNTER 2023-10-30 14:26 | Outpatient (CLI) | payer OTHER, SELFPAY ==
--- NOTE | ~2023-10-30 | MM_ITS ---
EXAMINATION: MM screening jerod BI w jojo HISTORY: Baseline screening mammogram TECHNIQUE: Craniocaudal and mediolateral oblique 3-D tomosynthesis images were obtained and synthetic 2-D images were generated. CAD analysis was submitted and interpreted. COMPARISON: None, baseline BREAST PARENCHYMAL COMPOSITION: There are scattered areas of fibroglandular density. FINDINGS: No suspicious mass, calcification, or architectural distortion are identified in either papi ast to suggest malignancy. IMPRESSION: 1. No mammographic evidence of malignancy. 2. Recommend routine screening mammography in one year. BI-RADS Category 1: Negative Reviewed, dictated and finalized at [facility]. 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
== END 2023-10-30 14:27 | disposition home or self-care (01) ==
LOC: ANHIMG 14:30
PROVIDERS: PCP Family Medicine; Visit Provider Nurse Practitioner Family
DX: Z12.31 Encounter for screening mammogram for malignant neoplasm of breast (principal)
CPT/HCPCS: 77063; 77067

== ENCOUNTER 2023-11-14 11:07 | Emergency (ER) | payer SELFPAY ==
[2023-11-14 11:25] VITALS: BP 130/82; PULSE 102; RESP 16; TEMP 37.2; O2SAT 99
--- NOTE | 2023-11-14 11:34 | ED.GENADULT ---
HPI - General Adult General Chief complaint: Upper Respiratory Infection Stated complaint: headache,bodyaches,throat issue Source: patient, RN notes reviewed and old records reviewed Mode of arrival: ambulatory Limitations: no limitations History of Present Illness HPI narrative: 43-year-old female presents to [facility] with complaints fatigue, myalgia, headache, slight cough this started yesterday. 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 Patient denies sore throat. Patient denies chest pain, shortness of breath, dizziness, weakness. Related Data Allergies Allergy/AdvReac Type Severity Reaction Status Date / Time No Known Allergies Allergy Unknown Verified 11/14/23 11:13 Review of Systems Constitutional: Constitutional: Reports no additional constitutional complaints, Reports body ache(s), Denies chills, Reports fatigue, Denies fever(s) and Reports headache(s) Eyes: Eyes: Reports no additional eye complaints and Denies blurry vision ENT: Reports system reviewed and no additional complaints, except as documented, Denies vertigo, Denies dizziness, Denies ear discharge, Denies otalgia, Denies facial pain, Denies headache(s), Reports nasal congestion, Denies nasal discharge, Denies sinus pain, Denies sinus pressure and Denies sore throat Cardiovascular: Cardiovascular: Reports no additional cardiovascular complaints, Denies chest pain, Denies chest pain at rest, Denies rapid heart rate and Denies dyspnea Respiratory: Respiratory: Reports no additional respiratory complaints, Denies chest congestion, Reports cough, Denies pain on inspiration, Denies pain with cough and Denies dyspnea Gastrointestinal: Gastrointestinal: Denies abdominal pain, Denies diarrhea, Denies nausea and Denies vomiting Integumentary/Breasts: Skin/Breast: Denies rash Neurologic: Reports system reviewed and no additional complaints, except as documented, Denies vertigo, Denies dizziness and Denies headache(s) Endocrine: Endocrine: Denies fatigue PMFSH Past Medical History Medical History Back Pain BMI 38.0-38.9,adult BMI 39.0-39.9,adult BMI 40.0-44.9, adult Cough COVID-19 Depression History of hemorrhoids Morbid (severe) obesity due to excess calories Right flank pain Well adult exam Surgical History Surgical History H/O bilateral salpingectomy H/O hysterectomy for benign disease History of appendectomy History of cholecystectomy History of right oophorectomy Hx of prior ablation treatment Family History Family History Father Family history of lung cancer Mother COPD (chronic obstructive pulmonary disease) Diabetes mellitus Sibling No problems noted. Other Cerebrovascular accident Family history of alcoholism Family history of anemia Family history of arthritis Family history of atrial fibrillation Family history of cardiovascular disease Family history of congestive heart failure Family history of dementia Family history of glaucoma Family history of hearing loss Family history of hepatitis Family history of kidney disease Family history of liver disease Family history of mental disorder Family history of migraine headaches Family history of obesity Family history of osteoporosis Family history of pancreatic cancer Family history of seizure disorder Social History Social History Social History: no Smoking packs per day: 1 Smoking cigarettes per day: 20.0 Years smoked: 12 Smoking pack-years: 12.00 Smoking status: Former smoker Tobacco type: cigarettes Second hand tobacco smoke exposure: Yes Smoking end date: 10/06/05 Alcohol intake: never Alcohol use details: 2x per year Substance use: former Substance use type
== END 2023-11-14 11:47 | disposition home or self-care (01) ==
PROVIDERS: Emergency Provider Registered Nurse; PCP Family Medicine
DX: J02.0 Streptococcal pharyngitis (principal); Z20.822 Contact with and (suspected) exposure to COVID-19; Z87.891 Personal history of nicotine dependence; E66.01 Morbid (severe) obesity due to excess calories; Z68.41 Body mass index [BMI] 40.0-44.9, adult
CPT/HCPCS: 87426; 87804; 87880; 99213; G0463